=== PATIENT | female | born 1970 | race Two or more races ===

== ENCOUNTER → 2016-09-02 | Outpatient (REF) | payer OTHER ==
[~2016-09-02] MED LIST: CORE20CA; DARV100T; XOPENEX
[2016-09-02 16:13] LABS: FREE T4 1.15 NG/DL (0.76-1.46)
== END ==
LOC: M SFHCPLAZ 14:03
PROVIDERS: ATTEND Family Medicine
DX: L65.9 Nonscarring hair loss, unspecified (principal)

== ENCOUNTER → 2016-10-10 | Outpatient (CLI) | payer OTHER ==
[~2016-10-10] VITALS: Ht 172.7 cm; Wt 99.8 kg
[~2016-10-10] MED LIST changes: +LIDOCAINE 2% INJ 100 MG/5 ML SDV (FOR ANES.) As Ordered ONE; +NS 1,000 ML IV ONE; +OMEP40CA2 PO; +PROPOFOL 200 MG/20 ML VIAL As Ordered ONE; +TOPA25TA10 PO
--- NOTE | 2016-10-10 09:46 | ROOR ---
Patient Name: Elen Rich Procedure Date: 10/10/2016 9:34 AM Date of : 1970 Age: 45 Room: [facility] Gender: Female Note Status: Finalized Procedure: Upper GI endoscopy Indications: Heartburn, Failure to respond to medical treatment Providers: Isra MEYER MD Referring MD: Annel Botello MD Requesting Provider: Medicines: Monitored Anesthesia Care Complications: No immediate complications. Procedure: Pre-Anesthesia Assessment: - The heart rate, respiratory rate, oxygen saturations, blood pressure, adequacy of pulmonary ventilation, and response to care were monitored throughout the procedure. The Endoscope was introduced through the mouth, and advanced to the second part of duodenum. The upper GI endoscopy was accomplished without difficulty. The patient tolerated the procedure well. Findings: The esophagus was normal. The stomach was normal. The examined duodenum was normal. Impression: - Normal esophagus. - Normal stomach. - Normal examined duodenum. - No specimens collected. Recommendation: - Follow an antireflux regimen. - Use sucralfate tablets 1 gram PO QID for 1 month. - (the script was sent to your pharmacy on file) Isra Meyer MD Isra MEYER MD 10/10/2016 9:46:29 AM This report has been signed electronically. Number of Addenda: 0 Note Initiated On: 10/10/2016 9:34 AM Estimated Blood Loss: Estimated blood loss: none.
[2016-10-10 10:00] VITALS: BP 129/82
== END ==
LOC: M OPP 08:49
PROVIDERS: ATTEND Internal Medicine Gastroenterology
DX: R12 Heartburn (principal); K21.9 Gastro-esophageal reflux disease without esophagitis; F41.9 Anxiety disorder, unspecified; F32.9 Major depressive disorder, single episode, unspecified; R68.81 Early satiety; Z79.899 Other long term (current) drug therapy; Z88.8 Allergy status to other drugs, medicaments and biological substances; Z88.5 Allergy status to narcotic agent

== ENCOUNTER 2016-11-09 15:57 | Emergency (ER) | payer OTHER ==
[~2016-11-09] VITALS: Ht 172.7 cm; Wt 98.9 kg
[~2016-11-09 15:57] MED LIST changes: -LIDOCAINE 2% INJ 100 MG/5 ML SDV (FOR ANES.) As Ordered ONE; -NS 1,000 ML IV ONE; -PROPOFOL 200 MG/20 ML VIAL As Ordered ONE
[2016-11-09] MEDS ORDERED: SUCR1TAB56 (16:25)
[2016-11-09] MEDS ORDERED: GI COCKTAIL 50ML BTL(HYOSCYAMINE/MAALOX/LIDOCAINE VISCOUS)(1:3:1) PO ONE (17:15)
--- NOTE | 2016-11-09 17:45 | REP ---
Chest two views HISTORY: Heartburn Comparison: 11/12/2007 The lungs are clear. The heart is normal in size. The pulmonary vasculature is normal in appearance. The bony structure is intact. IMPRESSION: No acute disease. Signed by Ab Flores MD 11/09/2016 05:37 P
[2016-11-09 18:00] LABS: BASO # 0.1 K/mm3 (0.0-0.2); BASO % 0.7 % (0.0-1.0); EOS # 0.2 K/mm3 (0.0-0.50); EOS % 2.3 % (0.0-3.0); LARGE UNSTAINED CELL # 0.1 K/mm3 (0.0-0.4); LARGE UNSTAINED CELL % 1.5 % (0.0-4.0); LYMPH # 2.2 K/mm3 (1.5-4.5); MEAN CORPUSCULAR HEMOGLOBIN 31.8 pg (27.0-33.0); MEAN CORPUSCULAR HGB CONC 34.3 g/dl (32.0-36.5); MEAN CORPUSCULAR VOLUME 92.9 fl (80.0-96.0); MONO # 0.5 K/mm3 (0.0-0.8); NEUTROPHILS # 6.4 K/mm3 (1.8-7.7); NEUTROPHILS % 68.6 % (36.0-66.0); PLATELET COUNT, AUTOMATED 285 k/mm3 (150-450); RED CELL DISTRIBUTION WIDTH 12.8 % (11.5-14.5); WHITE BLOOD COUNT 9.3 K/mm3 (4.0-10.0)
[2016-11-09 18:32] LABS: ANION GAP 3 MEQ/L (8-16); BLOOD UREA NITROGEN 11 MG/DL (7-18); CALCIUM LEVEL 9.3 MG/DL (8.5-10.1); CARBON DIOXIDE LEVEL 32 MEQ/L (21-32); CHLORIDE LEVEL 104 MEQ/L (98-107); CREATININE FOR GFR 0.71 MG/DL (0.55-1.02); GLOMERULAR FILTRATION RATE > 60.0 (>58); GLUCOSE, FASTING 88 MG/DL (70-105); POTASSIUM SERUM 3.9 MEQ/L (3.5-5.1); SODIUM LEVEL 139 MEQ/L (136-145)
--- NOTE | 2016-11-09 18:35 | ED PDOC ---
Post-Departure Follow-Up Patient presents to the ED with a 2 day history of "heartburn". She states that she has been "popping TUMS like candy" with some improvement noted each time. She has also been experiencing intermittent dizziness, which she attributes to her "ears being full of wax". She has also had 1 episode of nausea/vomiting, last night. See the T-sheet for the remainder of her H&P and ROS. Cardiac eval was initiated due to her complaint of heartburn, age and history of ablation in 2007. I also ordered bilateral ear irrigation as both EAC's are impacted with cerumen. Orthostatic VS were also ordered to evaluate for orthostatic hypotension causing her dizziness. NICCI LEONARD. EELER Nov 09, 2016 18:35
--- NOTE | 2016-11-09 19:44 | ED PDOC ---
Post-Departure Follow-Up Patient states heartburn and dizziness improved. Discussed test results and plan for discharge with the patient. Advised of worrisome signs to return to the ED for. Questions answered. Patient states understanding to the instructions. NICCI LEONARD. [facility] Nov 09, 2016 19:44
[2016-11-09 19:52] VITALS: BP 138/61
--- NOTE | 2016-11-10 08:21 | ECGEPIP ---
Stationary ECG Study 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
== END 2016-11-09 19:53 | disposition home or self-care (01) ==
LOC: M ED 17:00
DX: K21.9 Gastro-esophageal reflux disease without esophagitis (principal); H61.23 Impacted cerumen, bilateral; R42 Dizziness and giddiness; J45.909 Unspecified asthma, uncomplicated; G47.33 Obstructive sleep apnea (adult) (pediatric); F31.9 Bipolar disorder, unspecified; Z79.899 Other long term (current) drug therapy; Z88.5 Allergy status to narcotic agent; Z88.8 Allergy status to other drugs, medicaments and biological substances

== ENCOUNTER → 2017-01-13 | Outpatient (CLI) | payer OTHER ==
[~2017-01-13] MED LIST changes: +AFRI0.056; +AUGM875T28 PO; +CLAR1TAB2 PO; +IBUP80TA PO; +MUCI600T37 PO; +REGL10TA6 PO; +SUCR1TAB56; +SUMA50TA2; +TOPA1TAB PO; -TOPA25TA10 PO; +TRAZ50TA11; +ZOFR4TAB3 PO
--- NOTE | 2017-01-13 13:32 | REP ---
CT Head without contrast HISTORY: Headache COMPARISON: None There is no intraparenchymal hemorrhage, acute infarct, mass or midline shift. The ventricular system is normal in appearance. There is no extra cerebral collection. There is no fracture. The visualized sinuses are clear. IMPRESSION: There is no intracranial lesion. Signed by Ab Flores MD 01/13/2017 01:24 P
== END ==
LOC: M RAD 13:07
PROVIDERS: ATTEND Family Medicine
DX: R51 Headache (principal)

== ENCOUNTER 2017-01-19 12:43 | Emergency (ER) | payer OTHER ==
[~2017-01-19] VITALS: Ht 172.7 cm; Wt 101.7 kg
[~2017-01-19 12:43] MED LIST changes: -AFRI0.056; -AUGM875T28 PO; -CLAR1TAB2 PO; -IBUP80TA PO; -MUCI600T37 PO; -REGL10TA6 PO; -SUMA50TA2; -TRAZ50TA11; -ZOFR4TAB3 PO
[2017-01-19] MEDS ORDERED: SUMA50TA2 (12:53)
[2017-01-19] MEDS ORDERED: TRAZ50TA11 (12:53)
[2017-01-19] MEDS ORDERED: ONDANSETRON 4MG/2ML VIAL (J2405) IV ONE (15:00)
[2017-01-19] MEDS ORDERED: KETOROLAC 60 MG/2 ML VIAL (J1885) IM ONE (15:00)
[2017-01-19] MEDS ORDERED: METOCLOPRAMIDE 10 MG TAB PO ONE (15:00)
[2017-01-19] MEDS ORDERED: MUCI600T37 PO (15:05)
[2017-01-19] MEDS ORDERED: AUGM875T28 PO (15:05)
[2017-01-19] MEDS ORDERED: REGL10TA6 PO (15:05)
[2017-01-19] MEDS ORDERED: CLAR1TAB2 PO (15:05)
[2017-01-19] MEDS ORDERED: IBUP80TA PO (15:05)
[2017-01-19] MEDS ORDERED: ZOFR4TAB3 PO (15:05)
[2017-01-19] MEDS ORDERED: ONDANSETRON 4 MG ORAL DISINTEGRATING TAB (S0181) PO ONE (15:15)
[2017-01-19 15:55] VITALS: BP 123/71
[2017-01-19] MEDS ORDERED: AFRI0.056 (15:59)
== END 2017-01-19 16:13 | disposition home or self-care (01) ==
LOC: M ED 12:43
DX: J01.90 Acute sinusitis, unspecified (principal); R11.2 Nausea with vomiting, unspecified; R51 Headache; J45.909 Unspecified asthma, uncomplicated; G47.30 Sleep apnea, unspecified; F41.9 Anxiety disorder, unspecified; F31.9 Bipolar disorder, unspecified; M54.9 Dorsalgia, unspecified; Z90.49 Acquired absence of other specified parts of digestive tract; Z79.899 Other long term (current) drug therapy; Z88.5 Allergy status to narcotic agent; Z88.8 Allergy status to other drugs, medicaments and biological substances
CPT/HCPCS: 96372; 99282; J1885

== ENCOUNTER → 2017-01-20 | Outpatient (CLI) | payer OTHER ==
[~2017-01-20] MED LIST changes: +AFRI0.056; +AUGM875T28 PO; +CLAR1TAB2 PO; +IBUP80TA PO; +MUCI600T37 PO; +REGL10TA6 PO; +SUMA50TA2; +TRAZ50TA11; +ZOFR4TAB3 PO
--- NOTE | 2017-02-08 14:30 | REPMRS ---
Patient History The patient states she had a clinical breast exam in 09/19 Family history of colorectal cancer in father at age 50 or over. Digital Woman Screen Mammo: January 20, 2017 - Exam #: [id number] Bilateral CC and MLO view(s) were taken. Technologist: Dora Drew, Technologist Prior study comparison: 2015, digital bilateral screening mammo, performed at [facility]. November 24, 2014, digital bilateral screening mammo, performed at [facility]. December 18, 2012, digital bilateral screening mammo, performed at [facility]. FINDINGS: There are scattered fibroglandular densities. There is a moderate amount of residual fibroglandular tissue which is fairly symmetric. There is no interval development of dominant mass, architectural distortion, or clustered microcalcification typical of malignancy. There has been no change in the appearance of the mammogram from the prior studies. ASSESSMENT: BI-RADS/ACR category 1 mammogram. Negative. Recommendation Routine screening mammogram of both breasts in 1 year (for women over age 40). This mammogram was interpreted with the aid of an FDA-approved computer-aided dectection system. Electronically Signed By: Saul Costello MD 02/08/17 [id number]
== END ==
LOC: M WHC 09:27
PROVIDERS: ATTEND Family Medicine
DX: Z12.31 Encounter for screening mammogram for malignant neoplasm of breast (principal); Z80.0 Family history of malignant neoplasm of digestive organs

== ENCOUNTER → 2017-02-13 | Outpatient (REF) | payer OTHER ==
[2017-02-13 12:48] LABS: BASO # 0.1 K/mm3 (0.0-0.2); BASO % 0.9 % (0.0-1.0); EOS # 0.2 K/mm3 (0.0-0.50); EOS % 2.6 % (0.0-3.0); LARGE UNSTAINED CELL # 0.1 K/mm3 (0.0-0.4); LARGE UNSTAINED CELL % 1.7 % (0.0-4.0); LYMPH # 1.6 K/mm3 (1.5-4.5); LYMPH % 25.6 % (24.0-44.0); MEAN CORPUSCULAR HEMOGLOBIN 32.5 pg (27.0-33.0); MEAN CORPUSCULAR HGB CONC 34.3 g/dl (32.0-36.5); MEAN CORPUSCULAR VOLUME 94.7 fl (80.0-96.0); MONO # 0.3 K/mm3 (0.0-0.8); MONO % 5.3 % (0.0-5.0); NEUTROPHILS # 3.8 K/mm3 (1.8-7.7); NEUTROPHILS % 63.9 % (36.0-66.0); PLATELET COUNT, AUTOMATED 256 k/mm3 (150-450); RED CELL DISTRIBUTION WIDTH 12.5 % (11.5-14.5); WHITE BLOOD COUNT 5.9 K/mm3 (4.0-10.0)
[2017-02-13 13:44] LABS: ERYTHROCYTE SEDIMENTATION RATE 12 mm/hr (0-20)
[2017-02-13 15:06] LABS: ALBUMIN 3.6 GM/DL (3.2-5.2); ALBUMIN/GLOBULIN RATIO 1.13 (1.00-1.93); ALKALINE PHOSPHATASE 95 U/L (45-117); ALT/SGPT 19 U/L (12-78); ANION GAP 8 MEQ/L (8-16); AST/SGOT 14 U/L (15-37); BILIRUBIN,TOTAL 0.4 MG/DL (0.2-1.0); BLOOD UREA NITROGEN 11 MG/DL (7-18); CALCIUM LEVEL 8.7 MG/DL (8.5-10.1); CARBON DIOXIDE LEVEL 29 MEQ/L (21-32); CHLORIDE LEVEL 104 MEQ/L (98-107); CREATININE FOR GFR 0.73 MG/DL (0.55-1.02); GLOMERULAR FILTRATION RATE > 60.0 (>58); GLUCOSE, FASTING 76 MG/DL (70-105); POTASSIUM SERUM 3.8 MEQ/L (3.5-5.1); SODIUM LEVEL 141 MEQ/L (136-145); TOTAL PROTEIN 6.8 GM/DL (6.4-8.2)
== END ==
LOC: M LABNEURO 12:14
PROVIDERS: ATTEND Psychiatry & Neurology Neurology
DX: R51 Headache (principal)

== ENCOUNTER → 2017-02-18 | Outpatient (REF) | payer OTHER | LOC: M SFHCLERA 11:44 | PROVIDERS: ATTEND Physician Assistant | DX: J00 Acute nasopharyngitis [common cold] (principal) ==

== ENCOUNTER → 2017-07-20 | Outpatient (CLI) | payer OTHER | LOC: M LRY 11:35 | DX: R53.81 Other malaise (principal) ==

== ENCOUNTER → 2017-11-08 | Outpatient (CLI) | payer OTHER | LOC: M RAD 13:09 | DX: M26.622 Arthralgia of left temporomandibular joint (principal); J34.89 Other specified disorders of nose and nasal sinuses | CPT/HCPCS: 70486 ==

== ENCOUNTER → 2018-02-11 | Outpatient (CLI) | payer OTHER | LOC: M LRY 11:32 | DX: M79.672 Pain in left foot (principal) | CPT/HCPCS: 73630 ==

== ENCOUNTER → 2018-02-12 | Outpatient (REF) | payer OTHER ==
[2018-02-12 21:21] LABS: GLUCOSE, FASTING 85 MG/DL (70-100); TRIGLYCERIDES LEVEL 96 MG/DL (<150)
[2018-02-12 21:52] LABS: CHOLESTEROL LEVEL 195 MG/DL (<200); CHOLESTEROL RISK RATIO 4.148 (<5); HDL CHOLESTEROL 47 MG/DL (>40); LDL CHOLESTEROL 128.8 MG/DL (<100); NON-HDL-C 148 MG/DL
== END ==
LOC: M LABDRAW1 11:40
DX: Z13.220 Encounter for screening for lipoid disorders (principal); Z13.1 Encounter for screening for diabetes mellitus

== ENCOUNTER → 2018-07-11 | Outpatient (REF) | payer OTHER ==
[~2018-07-11] MED LIST changes: +TRAZ-160; -TRAZ50TA11; +ZOFR4TAB14 PO; -ZOFR4TAB3 PO
[2018-07-11 12:21] LABS: C REACTIVE PROTEIN QUANTITATIV 0.34 MG/DL (0.00-0.30)
[2018-07-12 14:16] LABS: ANTI DOUBLE STRAND-DNA AB 1 IU/mL (0-9); ANTINUCLEAR ANTIBODIES DIRECT Positive (Negative); RNP ANTIBODIES <0.2 AI (0.0-0.9); SJOGREN'S ANTI SS-A <0.2 AI (0.0-0.9); SJOGREN'S ANTI SS-B <0.2 AI (0.0-0.9); SMITH ANTIBODIES <0.2 AI (0.0-0.9)
== END ==
LOC: M SFHCPLAZ 09:23
PROVIDERS: ATTEND Family Medicine
DX: M79.7 Fibromyalgia (principal)

== ENCOUNTER → 2018-07-16 | Outpatient (CLI) | payer OTHER ==
--- NOTE | 2018-07-16 15:52 | REPMRS ---
Patient History The patient states she had a clinical breast exam in 09/2017. Family history of colorectal cancer at age 50 or over in father. No Hormone Replacement Therapy 3D TOMOSYNTHESIS WAS PERFORMED. Digital Woman Screen Mammo: July 16, 2018 - Exam #: [id number] Bilateral CC and MLO view(s) were taken. Technologist: Miriam Pack, Technologist Prior study comparison: January 20, 2017, digital woman screen mammo performed at [facility]. 2015, digital bilateral screening mammo, performed at [facility]. FINDINGS: The breast tissue is heterogeneously dense. This may lower the sensitivity of mammography. There has been no change in the appearance of the mammogram from the prior studies. There is a moderate amount of residual fibroglandular tissue which is fairly symmetric. There is no interval development of dominant mass, areas of architectural distortion, or clustered microcalcification typical of malignancy. Assessment: BI-RADS/ACR category 1 mammogram. Negative Mammogram. Recommendation Routine screening mammogram in 1 year (for women over age 40). This mammogram was interpreted with the aid of an FDA-approved computer-aided dectection system. Electronically Signed By: Henrik Herrera MD 07/16/18 [id number]
== END ==
LOC: M WHC 14:48
PROVIDERS: ATTEND Family Medicine
DX: Z12.31 Encounter for screening mammogram for malignant neoplasm of breast (principal); Z80.0 Family history of malignant neoplasm of digestive organs

== ENCOUNTER → 2018-09-15 | Outpatient (CLI) | payer OTHER ==
--- NOTE | 2018-09-16 07:32 | REP ---
Lumbar spine series: Five views. History: Acute low back pain without sciatica. Findings: There are surgical clips in the right upper quadrant of the abdomen. There are sutures in the right lower quadrant or pelvis. There are sclerotic changes of the SI joints bilaterally. Vertebral body heights are preserved. Alignment is normal. Disc spaces are maintained. Discogenic spurring is noted at L3-4 and L4-5. There is no evidence of spondylolysis or spondylolisthesis. Pedicles and posterior elements are intact. Impression: Minimal discogenic spurring at L4-5 and L3-4. Sclerosis and spurring at the SI joints consistent with degenerative changes. Postoperative changes in the abdomen. No acute bony abnormality. Electronically Signed by Tyler Costello MD 09/16/2018 07:53 A
== END ==
LOC: M LRY 15:35
PROVIDERS: ATTEND Physician Assistant
DX: M54.5 Low back pain (principal); M53.3 Sacrococcygeal disorders, not elsewhere classified

== ENCOUNTER 2019-02-18 07:26 | Emergency (ER) | payer OTHER ==
[~2019-02-18] VITALS: Ht 172.7 cm; Wt 110.6 kg
[~2019-02-18 07:26] MED LIST changes: -TRAZ-160; +TRAZ-252
[2019-02-18] MEDS ORDERED: IBUPROFEN 600 MG TAB PO ONE (08:00)
[2019-02-18] MEDS ORDERED: AMOX500C PO (08:23)
[2019-02-18] MEDS ORDERED: ZONI100C2 PO (08:23)
[2019-02-18] MEDS ORDERED: BUTA-198 PO (08:23)
--- NOTE | 2019-02-18 08:39 | REP ---
Right knee five views: There are no comparisons. There is marked patellofemoral joint space narrowing. There is no joint space narrowing of the medial lateral compartments. There is osteophytic formation at the medial, lateral and patellofemoral joint lines. There is no joint effusion. There is no fracture or dislocation. Mineralization is normal. Impression: Tricompartment osteoarthritis, more severe in the patellofemoral joint. No fracture or dislocation. No hemarthrosis or effusion. Electronically Signed by Henrik Sunshine MD 02/18/2019 08:30 A
[2019-02-18] MEDS ORDERED: VOLT1GEL15 TOP (08:44)
[2019-02-18 08:52] VITALS: BP 124/67
== END 2019-02-18 08:55 | disposition home or self-care (01) ==
LOC: M ED 07:26
DX: M17.11 Unilateral primary osteoarthritis, right knee (principal); F17.290 Nicotine dependence, other tobacco product, uncomplicated; J45.909 Unspecified asthma, uncomplicated; G47.30 Sleep apnea, unspecified; Z86.59 Personal history of other mental and behavioral disorders; Z88.5 Allergy status to narcotic agent; Z88.8 Allergy status to other drugs, medicaments and biological substances; Z79.899 Other long term (current) drug therapy

== ENCOUNTER → 2019-03-22 | Outpatient (CLI) | payer OTHER ==
[~2019-03-22] MED LIST changes: +AMOX500C PO; +BUTA-198 PO; -OMEP40CA2 PO; +OMEP40CA97 PO; +VOLT1GEL15 TOP; +ZONI100C2 PO
--- NOTE | 2019-03-22 09:35 | REP ---
MRI right knee without contrast: History: Pain in the right knee. Rule out meniscal tear. Comparison radiographs February 18, 2019. Technique: Axial, coronal, and sagittal imaging planes utilized. T1, proton density, and T2-weighted scans were obtained in the usual fashion with without fat saturation. MRI findings: Cortical and medullary bone signal intensity are normal. There is a moderate sized knee joint effusion. There are complex cystic changes posterior and medial to the distal femur above the knee joint line ear that there are some cystic changes in the soft tissues just posterior to the posterior cruciate ligament as well. There is a moderate sized joint effusion. There is moderate three compartment osteoarthritis as seen radiographically. This is most pronounced in the patellofemoral compartment where there is full-thickness articular cartilage loss in the lateral patellar facet and lateral femoral trochlear cartilage. There is subcortical marrow edema in the medial portion of the patella. There is mild to moderate chondromalacia with fissuring in the medial femoral condyle. There is a focal nearly full-thickness articular cartilage defect in the lateral femoral condyle weightbearing surface measuring 7 x 5 mm. No medial or lateral meniscal tear is appreciated. Anterior posterior cruciate ligaments appear intact. Patellar and quadriceps tendons are unremarkable. There is no evidence of medial or lateral collateral ligament disruption. Exam is otherwise unremarkable. Impression: Moderate three compartment osteoarthritis. Most pronounced in the patellofemoral compartment with significant deficiencies in the articular cartilage as described above. There is a moderate joint effusion. Posterior periarticular cysts. Electronically Signed by Tyler Costello MD 03/22/2019 07:33 P
== END ==
LOC: M PLARAD 07:33
PROVIDERS: ATTEND Orthopaedic Surgery Sports Medicine
DX: M17.11 Unilateral primary osteoarthritis, right knee (principal); M25.461 Effusion, right knee; M25.861 Other specified joint disorders, right knee

== ENCOUNTER → 2019-04-01 | Outpatient (REF) | payer OTHER | LOC: M SFHCLERA 13:08 | PROVIDERS: ATTEND Nurse Practitioner Family | DX: R50.9 Fever, unspecified (principal) ==

== ENCOUNTER → 2019-05-22 | Outpatient (CLI) | payer OTHER ==
--- NOTE | 2019-05-22 17:23 | ECGEPIP ---
[facility] Test Date: 2019-05-22 Pat Name: ESTHER BETANCOURT Department: Room: - Gender: Female Social Service Assistant: CARROLL : 1970 Requested By: LISET RUDD Order Number: [id number] Reading MD: Isra Jimenez Measurements Intervals [place] Rate: 105 P: 72 KS: 154 QRS: 39 QRSD: 92 T: 77 QT: 313 QTc: 414 Interpretive Statements SINUS TACHYCARDIA NONSPECIFIC T-WAVE ABNORMALITY Rate increased from tracing done 11-09-16 Electronically Signed on 05-22-2019 17:23:02 EST by Isra Jimenez
== END ==
LOC: M LAB 10:10
PROVIDERS: ATTEND Orthopaedic Surgery Sports Medicine
DX: Z01.818 Encounter for other preprocedural examination (principal)

== ENCOUNTER → 2019-08-10 | Outpatient (CLI) | payer OTHER ==
[~2019-08-10] MED LIST changes: +ZONI100C17 PO; -ZONI100C2 PO
--- NOTE | 2019-08-10 14:33 | REP ---
MRI left shoulder without contrast: History: Adhesive capsulitis of the left shoulder. Technique: Axial, oblique coronal and oblique sagittal imaging planes are utilized. T1 and T2-weighted scans were obtained with and without fat saturation. MRI findings: Cortical and medullary bone signal intensity are normal. There is hypertrophy and minimal fluid and spurring at the acromioclavicular joint. There is mild inferolateral spurring of the coracoid process. There is subacromial subdeltoid bursal effusion. A small quantity of glenohumeral joint fluid is visible. There is some tendinosis change in the supraspinatus tendon but no focal full-thickness cuff lesion is seen. There is some T2 hyperintensity focally in the distal supraspinatus tendon at its distal insertion which may be partial thickness lesion. There is fraying of the posterior cartilaginous labrum and the superior cartilaginous glenoid labrum, mild in degree. No loose body is seen. The subscapularis, biceps, and infraspinatus tendons appear intact. Impression: Subacromial subdeltoid bursal effusion. AC joint osteoarthritis and mild acromion process spurring. Mild cartilaginous labral fraying superiorly and posteriorly. Supraspinatus tendonitis tendinosis changes. Electronically Signed by Tyler Costello MD 08/10/2019 03:13 P
== END ==
LOC: M RAD 09:51
PROVIDERS: ATTEND Orthopaedic Surgery Sports Medicine
DX: M25.412 Effusion, left shoulder (principal); M19.012 Primary osteoarthritis, left shoulder

== ENCOUNTER → 2019-11-28 | Outpatient (REF) | payer OTHER ==
[2019-11-28 15:06] LABS: BASO # 0.1 10^3/uL (0.0-0.2); BASO % 0.8 % (0.0-1.0); EOS # 0.2 10^3/uL (0.0-0.5); EOS % 1.8 % (0.0-3.0); HEMATOCRIT 40.9 % (36.0-47.0); HEMOGLOBIN 13.4 g/dl (12.0-15.5); LYMPH # 2.2 10^3/uL (1.5-5.0); LYMPH % 24.7 % (24.0-44.0); MEAN CORPUSCULAR HEMOGLOBIN 30.7 pg (27.0-33.0); MEAN CORPUSCULAR HGB CONC 32.8 g/dl (32.0-36.5); MEAN CORPUSCULAR VOLUME 93.6 fl (80.0-96.0); MONO # 0.5 10^3/uL (0.0-0.8); NEUTROPHILS % 66.4 % (36.0-66.0); PLATELET COUNT, AUTOMATED 317 10^3/uL (150-450); RED BLOOD COUNT 4.37 10^6/uL (4.00-5.40)
[2019-11-28 15:27] LABS: HEMOGLOBIN A1c 5.2 %
[2019-11-28 15:37] LABS: ALBUMIN 3.7 GM/DL (3.2-5.2); ALT/SGPT 19 U/L (12-78); BILIRUBIN,TOTAL 0.3 MG/DL (0.2-1.0); BLOOD UREA NITROGEN 15 MG/DL (7-18); C REACTIVE PROTEIN QUANTITATIV 0.52 MG/DL (0.00-0.30); CALCIUM LEVEL 8.9 MG/DL (8.5-10.1); CARBON DIOXIDE LEVEL 30 MEQ/L (21-32); CHLORIDE LEVEL 107 MEQ/L (98-107); CREATININE FOR GFR 0.84 MG/DL (0.55-1.30); FREE T4 1.19 NG/DL (0.76-1.46); GLOMERULAR FILTRATION RATE > 60.0 (>58); GLUCOSE, FASTING 95 MG/DL (70-100); POTASSIUM SERUM 3.8 MEQ/L (3.5-5.1); SODIUM LEVEL 144 MEQ/L (136-145); THYROID STIMULATING HORMONE 0.817 uIU/ML (0.358-3.740); TOTAL PROTEIN 6.9 GM/DL (6.4-8.2)
[2019-11-28 16:18] LABS: ERYTHROCYTE SEDIMENTATION RATE 17 mm/hr (0-20)
== END ==
LOC: M SFHCPLAZ 14:04
PROVIDERS: ATTEND Family Medicine
DX: R53.83 Other fatigue (principal); R19.7 Diarrhea, unspecified; Z13.1 Encounter for screening for diabetes mellitus

== ENCOUNTER → 2020-01-10 | Outpatient (CLI) | payer OTHER, SELFPAY | LOC: M LABSMTC 12:30 | PROVIDERS: ATTEND Family Medicine | DX: Z11.59 Encounter for screening for other viral diseases (principal) ==

== ENCOUNTER → 2020-03-10 | Outpatient (REF) | payer OTHER ==
[2020-03-10 14:17] LABS: BASO # 0.1 10^3/uL (0.0-0.2); BASO % 0.7 % (0.0-1.0); EOS # 0.2 10^3/uL (0.0-0.5); EOS % 1.8 % (0.0-3.0); HEMATOCRIT 43.8 % (36.0-47.0); LYMPH # 1.7 10^3/uL (1.5-5.0); LYMPH % 20.3 % (24.0-44.0); MEAN CORPUSCULAR HEMOGLOBIN 30.4 pg (27.0-33.0); MEAN CORPUSCULAR VOLUME 95.2 fl (80.0-96.0); MONO # 0.6 10^3/uL (0.0-0.8); MONO % 7.2 % (0.0-5.0); NEUTROPHILS # 5.7 10^3/uL (1.5-8.5); NEUTROPHILS % 69.6 % (36.0-66.0); PLATELET COUNT, AUTOMATED 309 10^3/uL (150-450); WHITE BLOOD COUNT 8.2 10^3/uL (4.0-10.0)
[2020-03-10 14:45] LABS: ALBUMIN 3.8 GM/DL (3.2-5.2); ALT/SGPT 22 U/L (12-78); BILIRUBIN,TOTAL 0.5 MG/DL (0.2-1.0); BLOOD UREA NITROGEN 14 MG/DL (7-18); CALCIUM LEVEL 9.6 MG/DL (8.5-10.1); CARBON DIOXIDE LEVEL 29 MEQ/L (21-32); CHLORIDE LEVEL 107 MEQ/L (98-107); FERRITIN 109 NG/ML (8-252); GLOMERULAR FILTRATION RATE > 60.0 (>58); GLUCOSE, FASTING 85 MG/DL (70-100); IRON (FE) 53 UG/DL (50-170); PERCENT SATURATION 20.2 % (13.2-45.0); POTASSIUM SERUM 4.4 MEQ/L (3.5-5.1); SODIUM LEVEL 140 MEQ/L (136-145); TOTAL IRON BINDING CAPACITY 262 UG/DL (250-450); TOTAL PROTEIN 7.1 GM/DL (6.4-8.2)
== END ==
LOC: M SFHCPLAZ 09:16
PROVIDERS: ATTEND Family Medicine
DX: R10.12 Left upper quadrant pain (principal); R19.5 Other fecal abnormalities

== ENCOUNTER → 2020-04-15 | Outpatient (CLI) | payer OTHER ==
--- NOTE | 2020-04-20 11:24 | SLEEPHOME ---
DATE: 04/15/2020 ORDERED BY: Jaqueline Emmanuel Diagnostic home sleep testing was performed due to concern for the obstructive sleep apnea syndrome in this patient with a prior history of same. For testing, a nocturnal T3 respiratory monitoring device was used. Continuous record was made of pulse, oxygen saturation, air flow, chest and abdominal strain, and body position. There was 9 hours and 59 minutes of data reviewed. There was 8 hours and 5 minutes marked as time in bed. During the interval marked time in bed, there were 47 respiratory events identified of 10 seconds in duration or greater. The events were primarily obstructive, not exclusive to sleep position. Baseline pulse rate 68. Pulse rate ranged 52-102. Baseline saturation 92%. Saturations fell to 71%. Testing was performed in both the supine and nonsupine positions. IMPRESSION: Abnormal home sleep testing with repetitive respiratory events and oxygen desaturations to 71% with a respiratory event index of 5.8 is consistent with the obstructive sleep apnea syndrome. RECOMMENDATION: The patient should be encouraged to undergo further sleep evaluation. MTDD
== END ==
LOC: M SLEEP HO 07:59
PROVIDERS: ATTEND Nurse Practitioner Family
DX: R06.83 Snoring (principal)

== ENCOUNTER → 2020-07-10 | Outpatient (CLI) | payer OTHER ==
[~2020-07-10] MED LIST changes: +SUCR1TAB56 PO
--- NOTE | 2020-07-10 09:23 | REPPI ---
INDICATION: R06.02 SOB SHORTNESS OF BREATH COMPARISON: 11/09/2016 TECHNIQUE: PA and lateral. FINDINGS: The mediastinum and cardiac silhouette are normal. The lung martinez are clear and without acute consolidation, effusion, or pneumothorax. The skeletal structures are intact and normal. IMPRESSION: No acute cardiopulmonary process. <Electronically signed by Bob Pfeiffer > 07/10/20 0919
== END ==
LOC: M PLAIMG 08:51
PROVIDERS: ATTEND Family Medicine
DX: R06.02 Shortness of breath (principal)

== ENCOUNTER → 2021-06-09 | Outpatient (REF) ==
[~2021-06-09] MED LIST changes: +OMEP40CA4 PO; -OMEP40CA97 PO
== END ==
LOC: M LABSMTC 11:11
PROVIDERS: ATTEND Pediatrics
DX: Z11.52 Encounter for screening for COVID-19 (principal); Z20.822 Contact with and (suspected) exposure to COVID-19

== ENCOUNTER 2021-07-15 09:44 | Emergency (ER) | payer OTHER ==
[~2021-07-15] VITALS: Ht 175.3 cm; Wt 116.5 kg
[2021-07-15 09:44] VITALS: BP 125/81
[2021-07-15] MEDS ORDERED: ONDA4TAB6 PO (10:04)
[2021-07-15] MEDS ORDERED: GI COCKTAIL 50ML BTL(HYOSCYAMINE/MAALOX/LIDOCAINE VISCOUS)(1:3:1) PO ONE (10:20)
[2021-07-15 10:49] LABS: BASO # 0.1 10^3/uL (0.0-0.2); BASO % 0.8 % (0.0-1.0); EOS # 0.2 10^3/uL (0.0-0.5); EOS % 2.8 % (0.0-3.0); HEMATOCRIT 40.4 % (36.0-47.0); HEMOGLOBIN 13.4 g/dl (12.0-15.5); LYMPH # 1.9 10^3/uL (1.5-5.0); LYMPH % 22.4 % (24.0-44.0); MEAN CORPUSCULAR HEMOGLOBIN 30.4 pg (27.0-33.0); MEAN CORPUSCULAR HGB CONC 33.2 g/dl (32.0-36.5); MEAN CORPUSCULAR VOLUME 91.6 fl (80.0-96.0); MONO # 0.6 10^3/uL (0.0-0.8); MONO % 7.1 % (2.0-8.0); NEUTROPHILS # 5.5 10^3/uL (1.5-8.5); NEUTROPHILS % 66.7 % (36.0-66.0); PLATELET COUNT, AUTOMATED 275 10^3/uL (150-450); RED BLOOD COUNT 4.41 10^6/uL (4.00-5.40); WHITE BLOOD COUNT 8.3 10^3/uL (4.0-10.0)
[2021-07-15 11:01] LABS: INR 0.95; PROTHROMBIN TIME 13.1 SECONDS (12.7-14.5)
[2021-07-15 11:02] LABS: PARTIAL THROMBOPLASTIN TIME 35.4 SECONDS (25.9-37.0)
[2021-07-15 11:10] LABS: ERYTHROCYTE SEDIMENTATION RATE 25 mm/hr (0-20)
[2021-07-15 11:18] LABS: CK-MB VALUE MASS 1.2 NG/ML (<3.6); MB/CK RELATIVE INDEX 1.33 (< OR =4)
[2021-07-15 11:25] LABS: ALBUMIN 3.7 GM/DL (3.2-5.2); ALT/SGPT 16 U/L (12-78); BILIRUBIN,DIRECT 0.1 MG/DL (0.0-0.2); BILIRUBIN,TOTAL 0.4 MG/DL (0.2-1.0); BLOOD UREA NITROGEN 15 MG/DL (7-18); C REACTIVE PROTEIN QUANTITATIV 0.78 MG/DL (0.00-0.30); CALCIUM LEVEL 8.9 MG/DL (8.5-10.1); CARBON DIOXIDE LEVEL 27 MEQ/L (21-32); CHLORIDE LEVEL 109 MEQ/L (98-107); CREATININE FOR GFR 0.65 MG/DL (0.55-1.30); GLOMERULAR FILTRATION RATE > 60.0 (>58); GLUCOSE, FASTING 99 MG/DL (70-100); LIPASE 112 U/L (73-393); NT-PRO BNP 89 PG/ML (<125); POTASSIUM SERUM 4.1 MEQ/L (3.5-5.1); SODIUM LEVEL 142 MEQ/L (136-145); THYROID STIMULATING HORMONE 0.808 uIU/ML (0.358-3.740)
[2021-07-15 12:50] LABS: CK-MB VALUE MASS 1.5 NG/ML (<3.6); MB/CK RELATIVE INDEX 1.97 (< OR =4)
[2021-07-15] MEDS ORDERED: SUCR1TA PO (13:31)
[2021-07-15] MEDS ORDERED: OMEP40CA4 PO (13:31)
== END 2021-07-15 14:26 | disposition home or self-care (01) ==
LOC: M ED 09:44
DX: K21.9 Gastro-esophageal reflux disease without esophagitis (principal); F33.9 Major depressive disorder, recurrent, unspecified; G47.33 Obstructive sleep apnea (adult) (pediatric); G43.909 Migraine, unspecified, not intractable, without status migrainosus; Z88.5 Allergy status to narcotic agent; Z88.8 Allergy status to other drugs, medicaments and biological substances; Z79.899 Other long term (current) drug therapy

== ENCOUNTER → 2021-07-27 | Outpatient (REF) ==
[~2021-07-27] MED LIST changes: +ONDA4TAB6 PO; +SUCR1TA PO
[2021-07-27 11:33] LABS: INFLUENZA A AMPLIFICATION NEGATIVE (NEGATIVE); INFLUENZA B AMPLIFICATION NEGATIVE (NEGATIVE)
== END ==
LOC: M EMP 10:09
PROVIDERS: ATTEND Family Medicine
DX: Z20.822 Contact with and (suspected) exposure to COVID-19 (principal)

== ENCOUNTER → 2021-09-22 | Outpatient (REF) ==
[2021-09-22 13:27] LABS: RSV AMPLIFICATION NEGATIVE (NEGATIVE)
== END ==
LOC: M LABSMTC 09:37
PROVIDERS: ATTEND Family Medicine
DX: Z11.52 Encounter for screening for COVID-19 (principal)

== ENCOUNTER → 2021-10-26 | Outpatient (REF) ==
[~2021-10-26] MED LIST changes: -ZONI100C17 PO; +ZONI100C67 PO
[2021-10-26 11:03] LABS: RSV AMPLIFICATION NEGATIVE (NEGATIVE)
== END ==
LOC: M EMP 07:45
PROVIDERS: ATTEND Family Medicine
DX: Z11.52 Encounter for screening for COVID-19 (principal)

== ENCOUNTER → 2021-11-14 | Outpatient (REF) | LOC: M LABSMTC 09:11 | PROVIDERS: ATTEND Family Medicine | DX: Z20.822 Contact with and (suspected) exposure to COVID-19 (principal) ==

== ENCOUNTER → 2021-11-18 | Outpatient (CLI) | payer OTHER ==
[2021-11-18 18:33] LABS: BASO # 0.1 10^3/uL (0.0-0.2); BASO % 0.7 % (0.0-1.0); EOS # 0.2 10^3/uL (0.0-0.5); EOS % 2.5 % (0.0-3.0); HEMATOCRIT 39.1 % (36.0-47.0); HEMOGLOBIN 12.8 g/dl (12.0-15.5); LYMPH # 2.9 10^3/uL (1.5-5.0); MEAN CORPUSCULAR HEMOGLOBIN 30.3 pg (27.0-33.0); MEAN CORPUSCULAR HGB CONC 32.7 g/dl (32.0-36.5); MEAN CORPUSCULAR VOLUME 92.4 fl (80.0-96.0); MONO # 0.7 10^3/uL (0.0-0.8); NEUTROPHILS # 5.5 10^3/uL (1.5-8.5); NEUTROPHILS % 58.4 % (36.0-66.0); PLATELET COUNT, AUTOMATED 319 10^3/uL (150-450); RED BLOOD COUNT 4.23 10^6/uL (4.00-5.40); WHITE BLOOD COUNT 9.3 10^3/uL (4.0-10.0)
[2021-11-18 19:02] LABS: ALBUMIN 3.6 GM/DL (3.2-5.2); ALT/SGPT 16 U/L (12-78); BILIRUBIN,TOTAL 0.3 MG/DL (0.2-1.0); BLOOD UREA NITROGEN 19 MG/DL (7-18); C REACTIVE PROTEIN QUANTITATIV 0.95 MG/DL (0.00-0.30); CALCIUM LEVEL 8.9 MG/DL (8.5-10.1); CARBON DIOXIDE LEVEL 30 MEQ/L (21-32); CHLORIDE LEVEL 108 MEQ/L (98-107); CREATININE FOR GFR 0.86 MG/DL (0.55-1.30); GLOMERULAR FILTRATION RATE > 60.0 (>51); GLUCOSE, FASTING 91 MG/DL (70-100); POTASSIUM SERUM 3.9 MEQ/L (3.5-5.1); SODIUM LEVEL 141 MEQ/L (136-145); TOTAL PROTEIN 6.8 GM/DL (6.4-8.2)
[2021-11-18 19:03] LABS: VITAMIN B12 LEVEL 571 PG/ML (247-911)
[2021-11-18 20:29] LABS: ERYTHROCYTE SEDIMENTATION RATE 27 mm/hr (0-30)
== END ==
LOC: M LAB 17:51
PROVIDERS: ATTEND Physician Assistant
DX: M79.10 Myalgia, unspecified site (principal); M54.50 Low back pain, unspecified

== ENCOUNTER → 2022-01-05 | Outpatient (REF) | LOC: M LABSMTC 10:20 | PROVIDERS: ATTEND Family Medicine | DX: Z11.52 Encounter for screening for COVID-19 (principal); Z20.822 Contact with and (suspected) exposure to COVID-19 ==

== ENCOUNTER → 2022-02-10 | Outpatient (REF) | LOC: M EMP 14:30 | PROVIDERS: ATTEND Family Medicine | DX: Z20.822 Contact with and (suspected) exposure to COVID-19 (principal) ==

== ENCOUNTER → 2022-04-08 | Outpatient (REF) ==
[2022-04-08 10:16] LABS: RSV AMPLIFICATION NEGATIVE (NEGATIVE)
== END ==
LOC: M EMP 09:02
PROVIDERS: ATTEND Family Medicine
DX: Z20.822 Contact with and (suspected) exposure to COVID-19 (principal)

== ENCOUNTER → 2022-05-03 | Outpatient (CLI) | payer OTHER | LOC: M WHC 07:53 | PROVIDERS: ATTEND Physician Assistant | DX: R92.2 Inconclusive mammogram (principal); R92.8 Other abnormal and inconclusive findings on diagnostic imaging of breast; N63.24 Unspecified lump in the left breast, lower inner quadrant ==

== ENCOUNTER → 2022-05-16 | Outpatient (REF) | payer OTHER ==
[2022-05-16 17:29] LABS: FOLLICLE STIMULATING HORMONE 117.2 mIU/ML; LUTEINIZING HORMONE 59.9 mIU/ML
== END ==
LOC: M LAB REF 16:11
PROVIDERS: ATTEND Physician Assistant
DX: N95.1 Menopausal and female climacteric states (principal)

== ENCOUNTER → 2022-07-29 | Outpatient (REF) | LOC: M LABSMTC 09:20 | PROVIDERS: ATTEND Family Medicine | DX: Z11.52 Encounter for screening for COVID-19 (principal) ==

== ENCOUNTER → 2022-10-17 | Outpatient (CLI) | payer OTHER | LOC: M RAD 11:32 | PROVIDERS: ATTEND Physician Assistant | DX: M77.32 Calcaneal spur, left foot (principal) ==